=== PATIENT | female | born 2000 | race Caucasian/White ===

== ENCOUNTER 2024-03-15 21:59 | Emergency (ER) | payer MEDICAID ==
[~2024-03-15] VITALS: Ht 162.6 cm; Wt 70.3 kg
[2024-03-15 22:10] VITALS: BP 106/63; PULSE 89; RESP 16; TEMP 97.6; O2SAT 100
[2024-03-15] MEDS ORDERED: NITR100C7 PO (22:38)
[2024-03-15] MEDS ORDERED: DOXY1TCP PO (22:38)
== END 2024-03-15 22:52 | disposition home or self-care (01) ==
LOC: MED 21:59
DX: O23.41 Unspecified infection of urinary tract in pregnancy, first trimester (principal); Z3A.12 12 weeks gestation of pregnancy
CPT/HCPCS: 81002; 81025; 99283